=== PATIENT | female | born 1940 | race African-American/Black ===

== ENCOUNTER 2021-08-03 14:20 | Inpatient (IN) | payer OTHER, MEDICAID ==
[2021-08-02] MEDS: CEFTRIAXONE 1,000 MG in DEXTROSE 5% WATER 50 ML IV SCH (07:00)
[~2021-08-03] VITALS: Ht 167.6 cm; Wt 40.8 kg
[2021-08-03] MEDS ORDERED: SODIUM CHLORIDE 0.9% 1,000 ML IV ONE (17:45)
[2021-08-03] MEDS ORDERED: AMPICILLIN SOD/SULBACTAM NA 3 G in SODIUM CHLORIDE 0.9% 100 ML IV SCH (17:45)
[2021-08-03] MEDS ORDERED: DEXAMETHASONE 10 MG/ML VIAL IV ONE (18:00)
[2021-08-03 18:33] LABS: BASOPHILS % 0.5 % (0.0-2.0); EOSINOPHILS % 2.9 % (0.0-5.0); HEMATOCRIT. 28.8 % (36.0-48.0); HEMOGLOBIN. 9.3 g/dL (12.0-16.0); LYMPHOCYTES % 7.1 % (20.0-50.0); MEAN CORPUSCULAR VOLUME 86.8 fL (81.0-99.0); MEAN PLATELET VOLUME 7.5 fl (7.4-10.4); NEUTROPHILS % 81.5 % (40.0-76.0); PLATELET 524 x1000/uL (130-400); RED BLOOD CELL COUNT 3.31 mill/uL (4.2-5.4); RED CELL DISTRIBUTION WIDTH 15.5 % (11.6-14.6)
[2021-08-03 18:52] LABS: CHLORIDE 98 mEq/L (98-107)
[2021-08-03] MEDS: KCL 20MEQ/100ML PREMIX 100 ML IV SCH ×2 (20:38→22:39)
[2021-08-04 00:17] VITALS: BP 126/73
[2021-08-04] MEDS ORDERED: AMLO5TAB88 PO (01:43)
[2021-08-04] MEDS ORDERED: SODIUM CHL 0.9% + KCL 20MEQ/L 1,000 ML IV SCH (02:00)
[2021-08-04] MEDS: AZITHROMYCIN 500 MG in DEXT 5% WATER 250 ML IV SCH (03:00)
[2021-08-04 04:00] VITALS: BP 147/79
[2021-08-04 06:13] LABS: HEMATOCRIT. 26.6 % (36.0-48.0); HEMOGLOBIN. 8.5 g/dL (12.0-16.0); MEAN CORPUSCULAR HEMOGLOBIN 27.2 pg (28.0-32.0); MEAN CORPUSCULAR VOLUME 84.8 fL (81.0-99.0); MEAN PLATELET VOLUME 7.7 fl (7.4-10.4); PLATELET 500 x1000/uL (130-400); RED BLOOD CELL COUNT 3.14 mill/uL (4.2-5.4); RED CELL DISTRIBUTION WIDTH 15.7 % (11.6-14.6)
[2021-08-04 08:00] VITALS: BP 156/93
[2021-08-04] MEDS: AMLODIPINE 5MG TABLET PO SCH (08:45)
[2021-08-04] MEDS: IPRATROPIUM/ALBUTEROL 0.5-3(2.5)MG/3ML NEB HHN SCH ×4 (09:19→21:13)
[2021-08-04] MEDS: SODIUM CHLORIDE 0.9% 1,000 ML IV SCH (09:45)
[2021-08-04 11:55] VITALS: BP 126/73
[2021-08-04 12:52] LABS: TOTAL IRON BINDING CAPACITY 159 ug/dL (250-450)
[2021-08-04 13:23] LABS: PLATELET ESTIMATE INCREASED
[2021-08-04 13:26] LABS: VITAMIN B12 SERUM 1946 pg/mL (211-911)
[2021-08-04 13:39] LABS: FOLIC ACID (FOLATE) SERUM > 20.00 ng/mL (>5.38)
[2021-08-04 13:51] LABS: CLARITY URINE CLEAR (CLEAR); COLOR URINE YELLOW (YELLOW); KETONES URINE 1+ (NEGATIVE); LEUKOCYTE ESTERASE URINE TRACE (NEGATIVE); NITRITE URINE NEGATIVE (NEGATIVE); OCCULT BLOOD URINE NEGATIVE (NEGATIVE); PH URINE 6.5 (4.5-8.0); PROTEIN URINE 2+ (NEGATIVE); SPECIFIC GRAVITY URINE 1.019 (1.005-1.030); UROBILINOGEN URINE 0.2 E.U./dL (0.2-1.0)
[2021-08-04 14:29] LABS: FERRITIN 251 ng/mL (10-291)
[2021-08-04 16:00] VITALS: BP 125/62
[2021-08-04 20:00] VITALS: BP 128/57
[2021-08-05] VITALS: BP 121/77
[2021-08-05] MEDS: IPRATROPIUM/ALBUTEROL 0.5-3(2.5)MG/3ML NEB HHN SCH ×6 (00:54→21:00)
[2021-08-05] MEDS: SODIUM CHLORIDE 0.9% 1,000 ML IV SCH ×2 (02:00→13:25)
[2021-08-05] MEDS: CEFTRIAXONE 1,000 MG in DEXTROSE 5% WATER 50 ML IV SCH (02:27)
[2021-08-05] MEDS: AZITHROMYCIN 500 MG in DEXT 5% WATER 250 ML IV SCH (02:28)
[2021-08-05 08:00] VITALS: BP 137/76
[2021-08-05] MEDS: AMLODIPINE 5MG TABLET PO SCH (08:46)
[2021-08-05 11:14] LABS: HEMOGLOBIN. 7.7 g/dL (12.0-16.0); MEAN CORPUSCULAR HEMOGLOBIN 27.8 pg (28.0-32.0); MEAN CORPUSCULAR VOLUME 86.3 fL (81.0-99.0); MEAN PLATELET VOLUME 7.5 fl (7.4-10.4); PLATELET 453 x1000/uL (130-400); RED BLOOD CELL COUNT 2.78 mill/uL (4.2-5.4)
[2021-08-05 12:00] VITALS: BP 146/69
[2021-08-05] MEDS: ACETAMINOPHEN 650MG/20.3ML UDC PO PRN (12:42)
[2021-08-05] MEDS ORDERED: POTASSIUM CHLORIDE INJ 40 MEQ in DEXT 5% WATER 250 ML IV NR (14:00)
[2021-08-05 14:18] LABS: PLATELET ESTIMATE SLIGHTLY INCREASED
[2021-08-05 16:00] VITALS: BP 138/78
[2021-08-05 20:00] VITALS: BP 137/86
[2021-08-06] VITALS: BP 147/80
[2021-08-06] MEDS: SODIUM CHLORIDE 0.9% 1,000 ML IV SCH ×2 (00:45→13:03)
[2021-08-06] MEDS: IPRATROPIUM/ALBUTEROL 0.5-3(2.5)MG/3ML NEB HHN SCH ×6 (01:26→20:56)
[2021-08-06] MEDS: CEFTRIAXONE 1,000 MG in DEXTROSE 5% WATER 50 ML IV SCH (01:48)
[2021-08-06] MEDS: AZITHROMYCIN 500 MG in DEXT 5% WATER 250 ML IV SCH (02:23)
[2021-08-06 04:00] VITALS: BP 155/81
[2021-08-06 06:28] LABS: HEMATOCRIT. 25.5 % (36.0-48.0); HEMOGLOBIN. 8.3 g/dL (12.0-16.0); MEAN CORPUSCULAR HEMOGLOBIN 28.1 pg (28.0-32.0); MEAN CORPUSCULAR VOLUME 86.4 fL (81.0-99.0); MEAN PLATELET VOLUME 7.4 fl (7.4-10.4); PLATELET 464 x1000/uL (130-400); RED BLOOD CELL COUNT 2.95 mill/uL (4.2-5.4); RED CELL DISTRIBUTION WIDTH 16.1 % (11.6-14.6)
[2021-08-06 07:38] VITALS: BP 156/92
[2021-08-06] MEDS: AMLODIPINE 5MG TABLET PO SCH (08:13)
[2021-08-06 09:20] LABS: PLATELET ESTIMATE INCREASED
[2021-08-06] MEDS: KCL 20MEQ/100ML PREMIX 100 ML IV SCH ×2 (11:32→13:03)
[2021-08-06 12:00] VITALS: BP 144/82
[2021-08-06 15:55] VITALS: BP 133/71
[2021-08-06] MEDS: IRON SUCROSE COMPLEX 100 MG/5 ML ML IV SCH (16:37)
[2021-08-06 20:00] VITALS: BP 141/90
[2021-08-07] VITALS: BP 157/87
[2021-08-07] MEDS: IPRATROPIUM/ALBUTEROL 0.5-3(2.5)MG/3ML NEB HHN SCH ×6 (00:55→20:39)
[2021-08-07] MEDS: CEFTRIAXONE 1,000 MG in DEXTROSE 5% WATER 50 ML IV SCH (01:52)
[2021-08-07] MEDS: AZITHROMYCIN 500 MG in DEXT 5% WATER 250 ML IV SCH (02:43)
[2021-08-07] MEDS: SODIUM CHLORIDE 0.9% 1,000 ML IV SCH (02:44)
[2021-08-07 04:00] VITALS: BP 153/85
[2021-08-07 06:35] LABS: BASOPHILS % 0.6 % (0.0-2.0); EOSINOPHILS % 2.1 % (0.0-5.0); HEMATOCRIT. 26.7 % (36.0-48.0); HEMOGLOBIN. 8.8 g/dL (12.0-16.0); LYMPHOCYTES % 7.3 % (20.0-50.0); MEAN CORPUSCULAR HEMOGLOBIN 28.5 pg (28.0-32.0); MEAN CORPUSCULAR VOLUME 86.3 fL (81.0-99.0); MEAN PLATELET VOLUME 7.9 fl (7.4-10.4); MONOCYTES % 10.2 % (2.0-8.0); NEUTROPHILS % 79.8 % (40.0-76.0); PLATELET 506 x1000/uL (130-400); RED BLOOD CELL COUNT 3.09 mill/uL (4.2-5.4); RED CELL DISTRIBUTION WIDTH 16.1 % (11.6-14.6)
[2021-08-07 08:00] VITALS: BP 160/86
[2021-08-07 12:00] VITALS: BP 143/77
[2021-08-07 16:00] VITALS: BP 133/81
[2021-08-07] MEDS ORDERED: ONDANSETRON HCL 4MG/2ML INJ IV PRN (17:15)
[2021-08-07] MEDS: IRON SUCROSE COMPLEX 100 MG/5 ML ML IV SCH (17:20)
[2021-08-07 20:00] VITALS: BP 146/84
[2021-08-08] VITALS: BP 136/84
[2021-08-08] MEDS: IPRATROPIUM/ALBUTEROL 0.5-3(2.5)MG/3ML NEB HHN SCH ×4 (00:19→11:40)
[2021-08-08] MEDS: CEFTRIAXONE 1,000 MG in DEXTROSE 5% WATER 50 ML IV SCH (01:27)
[2021-08-08] MEDS: AZITHROMYCIN 500 MG in DEXT 5% WATER 250 ML IV SCH (02:14)
[2021-08-08 04:00] VITALS: BP 136/78
[2021-08-08 07:33] LABS: BASOPHILS % 0.6 % (0.0-2.0); EOSINOPHILS % 3.9 % (0.0-5.0); HEMATOCRIT. 27.5 % (36.0-48.0); MEAN CORPUSCULAR HEMOGLOBIN 28.1 pg (28.0-32.0); MEAN CORPUSCULAR VOLUME 85.9 fL (81.0-99.0); MEAN PLATELET VOLUME 7.7 fl (7.4-10.4); MONOCYTES % 11.6 % (2.0-8.0); NEUTROPHILS % 73.9 % (40.0-76.0); PLATELET 498 x1000/uL (130-400); RED CELL DISTRIBUTION WIDTH 16.6 % (11.6-14.6)
[2021-08-08 08:00] VITALS: BP 134/98
[2021-08-08] MEDS: AMLODIPINE 5MG TABLET PO SCH ×2 (09:19→09:20)
[2021-08-08 09:56] LABS: CREATINE KINASE 29 IU/L (26-192)
[2021-08-08] MEDS ORDERED: BARIUM SULFATE 176 GM SUSP.RECON ONE (10:03)
[2021-08-08] MEDS: SODIUM CHLORIDE 0.9% 1,000 ML IV SCH ×2 (11:13→21:43)
[2021-08-08 12:00] VITALS: BP 121/80
[2021-08-08] MEDS ORDERED: IPRATROPIUM/ALBUTEROL 0.5-3(2.5)MG/3ML NEB HHN PRN (14:15)
[2021-08-08 16:00] VITALS: BP 112/76
[2021-08-08] MEDS: IRON SUCROSE COMPLEX 100 MG/5 ML ML IV SCH (18:16)
[2021-08-08 20:00] VITALS: BP 149/82
[2021-08-08] MEDS: ACETAMINOPHEN 650MG/20.3ML UDC PO PRN (20:34)
[2021-08-09] VITALS: BP 155/84
[2021-08-09] MEDS: CEFTRIAXONE 1,000 MG in DEXTROSE 5% WATER 50 ML IV SCH (02:06)
[2021-08-09] MEDS: AZITHROMYCIN 500 MG in DEXT 5% WATER 250 ML IV SCH (02:55)
[2021-08-09 04:00] VITALS: BP 143/76
[2021-08-09 07:03] LABS: BASOPHILS % 0.5 % (0.0-2.0); EOSINOPHILS % 4.4 % (0.0-5.0); HEMATOCRIT. 27.7 % (36.0-48.0); HEMOGLOBIN. 8.8 g/dL (12.0-16.0); LYMPHOCYTES % 7.7 % (20.0-50.0); MEAN CORPUSCULAR HEMOGLOBIN 27.7 pg (28.0-32.0); MEAN CORPUSCULAR VOLUME 87.5 fL (81.0-99.0); MEAN PLATELET VOLUME 7.5 fl (7.4-10.4); MONOCYTES % 10.7 % (2.0-8.0); NEUTROPHILS % 76.7 % (40.0-76.0); PLATELET 504 x1000/uL (130-400); RED BLOOD CELL COUNT 3.16 mill/uL (4.2-5.4); RED CELL DISTRIBUTION WIDTH 16.4 % (11.6-14.6)
[2021-08-09 08:00] VITALS: BP 158/90
[2021-08-09] MEDS: AMLODIPINE 5MG TABLET PO SCH (08:20)
[2021-08-09] MEDS: ACETAMINOPHEN 650MG/20.3ML UDC PO PRN ×3 (08:20→22:27)
[2021-08-09] MEDS: SODIUM CHLORIDE 0.9% 1,000 ML IV SCH (11:36)
[2021-08-09 12:00] VITALS: BP 142/86
[2021-08-09] MEDS ORDERED: POTASSIUM CHLORIDE INJ 40 MEQ in DEXT 5% WATER 250 ML IV ONE (12:00)
[2021-08-09] MEDS: KCL 20MEQ/100ML X 2 FOR TOTAL KCL 40MEQ/200ML IV SCH ×2 (15:00→18:41)
[2021-08-09 16:00] VITALS: BP 156/82
[2021-08-09 20:00] VITALS: BP 153/88
[2021-08-10] VITALS: BP 119/76
[2021-08-10 04:00] VITALS: BP 153/79
[2021-08-10 08:12] LABS: HEMATOCRIT. 25.9 % (36.0-48.0); HEMOGLOBIN. 8.4 g/dL (12.0-16.0); MEAN CORPUSCULAR VOLUME 86.2 fL (81.0-99.0); MEAN PLATELET VOLUME 7.7 fl (7.4-10.4); PLATELET 526 x1000/uL (130-400); RED CELL DISTRIBUTION WIDTH 16.5 % (11.6-14.6)
[2021-08-10 08:15] LABS: PHOSPHORUS 2.6 mg/dL (2.5-4.9)
[2021-08-10] MEDS: AMLODIPINE 5MG TABLET PO SCH (08:57)
[2021-08-10] MEDS ORDERED: KCL 20MEQ/100ML PREMIX 100 ML IV NR (11:00)
[2021-08-10 11:08] LABS: PLATELET ESTIMATE INCREASED
[2021-08-10 12:00] VITALS: BP 164/71
[2021-08-10 16:00] VITALS: BP 115/68
[2021-08-10 16:13] VITALS: BP 115/68
== END 2021-08-10 20:14 | disposition home or self-care (01) | DRG 871 ==
LOC: ER 15:09 → 7WST 21:11 → ENRESERV 22:50 → 7WST 08-04 00:40
PROVIDERS: ADMIT Internal Medicine; ATTEND Internal Medicine
DX: A41.9 Sepsis, unspecified organism (principal); E43 Unspecified severe protein-calorie malnutrition; N17.0 Acute kidney failure with tubular necrosis; I13.0 Hypertensive heart and chronic kidney disease with heart failure and stage 1 through stage 4 chronic kidney disease, or unspecified chronic kidney disease; Z68.1 Body mass index [BMI] 19.9 or less, adult; E87.2 Acidosis; N39.0 Urinary tract infection, site not specified; E83.52 Hypercalcemia; E87.6 Hypokalemia; N18.9 Chronic kidney disease, unspecified; E86.9 Volume depletion, unspecified; C11.9 Malignant neoplasm of nasopharynx, unspecified; D50.9 Iron deficiency anemia, unspecified; I50.9 Heart failure, unspecified; D63.8 Anemia in other chronic diseases classified elsewhere; K76.9 Liver disease, unspecified; J44.9 Chronic obstructive pulmonary disease, unspecified; R13.10 Dysphagia, unspecified; Z85.118 Personal history of other malignant neoplasm of bronchus and lung; Z87.891 Personal history of nicotine dependence
CPT/HCPCS: 36415; 70490; 71045; 71250; 74230; 76700; 80048; 80053; 81003; 82378; 82550; 82607; 82728; 82746; 83540; 83550; 83605; 83735; 83880; 84100; 84145; 84484; 85025; 85044; 92610; 92611; 93005; 94640; 97162; 97530; 99291; C1893; J0295; J0456; J0696; J1100; J2405; J3480; J7030; J7050; J7060